=== PATIENT | female | born 1985 | race Caucasian/White ===

== ENCOUNTER 2022-03-31 10:00 | Emergency (ER) | payer MEDICARE, OTHER, SELFPAY ==
[2022-03-31] VITALS (8 sets, daily range): BP systolic 105–143; BP diastolic 60–72; PULSE 72–99; RESP 10–16; TEMP 36.8; O2SAT 98–100; BMI 20.1
--- NOTE | 2022-03-31 10:20 | DI.RAD.S_ITS ---
PROCEDURE: XR CHEST 2V INDICATIONS: shortness of breath TECHNIQUE: 2 views of the chest were acquired. COMPARISON: None. FINDINGS: Surgical changes and devices: None. Lungs and pleura: Lungs are clear. No pleural effusions or pneumothorax. Mediastinum: Mediastinal contours are normal. Heart size is normal. Bones and chest wall: No suspicious bony abnormalities. Soft tissues appear unremarkable. IMPRESSION: No acute cardiopulmonary abnormality. Dictated by: Augie Gibson M.D. on 03/31/2022 at 11:03 Approved by: Augie Gibson M.D. on 03/31/2022 at 11:04
--- NOTE | 2022-03-31 10:45 | ED.CHESTPAIN ---
HPI - Chest Pain General Chief Complaint: Chest Pain Stated Complaint: Chest pain Time Seen by Provider: 03/31/22 10:45 Source: patient Mode of arrival: Ambulatory Limitations: no limitations Limitations: no limitations History of Present Illness HPI narrative: Patient is here with lower sternal chest pain, increased with inspiration. She developed a chest cold about 5 days ago. She has a nonproductive cough. She denies sinus pressure, rhinorrhea or sore throat. She is a nonsmoker. She has no allergy or asthma. She has no chronic respiratory illness, or cardiac disease. She has no abdominal pain. She is not . She has no lower extremity edema or tenderness. Related Data Allergies Allergy/AdvReac Type Severity Reaction Status Date / Time No Known Drug Allergies Allergy Verified 03/31/22 12:11 Review of Systems Review of Systems ROS Unobtainable: All systems reviewed & are unremarkable except as noted in HPI and below Constitutional Constitutional: Reports body ache(s), Denies chills, Reports fatigue, Denies fever(s), Denies night sweats and Denies poor appetite Eyes Eyes: Denies eye discharge ENT Ears, Nose, Mouth, and Throat: Denies vertigo, Denies dizziness, Denies otalgia, Denies mouth pain, Denies neck pain and Reports sore throat Cardiovascular Cardiovascular: Reports as per HPI and Denies dyspnea Respiratory Respiratory: Denies chest congestion, Reports cough and Denies dyspnea Gastrointestinal Gastrointestinal: Denies abdominal pain, Denies dyspepsia and Denies nausea Genitourinary Genitourinary: Denies dysuria Musculoskeletal Musculoskeletal: Denies back pain and Denies neck pain Integumentary/Breasts Skin/Breast: Denies lesions and Denies rash Neurologic Neurologic: Denies confusion, Denies vertigo and Denies dizziness Psychiatric Psychiatric: Denies confusion Endocrine Endocrine: Reports fatigue Hematologic/Lymphatic On Anticoagulants: No Patient History Medical History (Updated 03/31/22 @ 12:25 by Alban Chao MD) No chronic diseases present Social History Smoking Status: Unknown if ever smoked Smoking Status: Never smoker Exam Initial Vital Signs Initial Vital Signs: Vital Signs Temperature 98.2 F 03/31/22 10:02 Pulse Rate 99 H 03/31/22 10:02 Respiratory Rate 16 03/31/22 10:02 Blood Pressure 143/71 H 03/31/22 10:02 Pulse Oximetry 99 03/31/22 10:02 Oxygen Delivery Method 03/31/22 10:02 Const General: cooperative, healthy appearing, comfortable, well developed and well groomed Nutritional Appearance: average body habitus [facility] Head: normal to inspection, normocephalic and atraumatic Face and sinus: normal facial exam and sinuses nontender Mouth: oral mucosae normal Throat: posterior oropharynx normal Eyes Conjunctivae: conjunctivae normal Sclera: sclerae normal Pupils: PERRL EOM: EOM intact bilaterally Neck Neck: normal visual inspection and full ROM Chest Chest: normal inspection of the chest Resp Effort & Inspection: normal respiratory effort Cardio Rate: regular rate Rhythm: regular rhythm Heart Sounds: S1 normal, S2 normal and no murmurs GI Inspection: normal to inspection Palpation: soft Auscultation: normal bowel sounds Back/Spine/Pelvis Back: No CVA tenderness Skin General: no rashes or lesions noted Neuro General: patient alert, patient awake and no focal motor deficits Extrem General: normal to inspection, full ROM and no calf tenderness Psych Mental Status: mental status grossly normal Course Course Course Narrative: Patient is feeling better with ibuprofen. Findings risks consistent with costochondritis. She is discharged on ibuprofen Orders Ordered: ED Orders 03/31/22 10:20 XR chest 2V Stat COVID19 -Nasal RAPID/Pre-Proc Stat Measure peak expiratory flow ONCE RT Consult Eval and Treat Now 03/31/22 10:46 Complete Blood Count AUTO DIFF Stat Comprehensive Metabolic Panel Stat Lactate (Lactic Acid) Stat NT-proBNP (BNP-Adult 18+) Stat 03/31/22 10:53 EKG-12 Lead Stat Discontinued Medications Ibuprofen (Ibuprofen 400 Mg Tablet) 400 mg PO NOW ONE Stop: 03/31/22 10:46 Last Admin: 03/31/22 11:19 Dose: 400 mg Documented By: SB Vital Signs Vital signs: Vital Signs - 8 hr 03/31/22 10:02 Temperature 98.2 F Pulse Rate 99 H Respiratory Rate 16 Blood Pressure 143/71 H Pulse Oximetry 99 Oxygen Delivery Method Room Air MDM - Chest Pain Lab Data Result diagrams: 03/31/22 10:46 03/31/22 10:46 Labs: Lab Results 03/31/22 03/31/22 03/31/22 Range/Units 10:20 10:46 10:46 WBC 4.1 L (4.5-11.0) X10^3/uL RBC 4.78 (4.0-5.2) X10^6/uL Hgb 13.6 (12.0-16.0) g/dL Hct 39.6 (36-46) % MCV 82.9 (80-100) fL MCH 28.4 (26-34) PG MCHC 34.3 (30-36) % RDW 13.8 (11.6-14.8) % Plt Count 232 (150-400) X10^3/uL Neut % (Auto) 60.5 (50-75) % Lymph % (Auto) 26.7 (25-40) % [place] % (Auto) 11.3 (3-14) % Eos % (Auto) 1.1 L (2-4) % Baso % (Auto) 0.4 (0-2) % Neut # (Auto) 2500 (6451-9304) /uL Lymph # (Auto) 1100 (0705-4957) /uL [place] # (Auto) 500 (0-900) /uL Eos # (Auto) 0 (0-450) /uL Baso # (Auto) 0 (0-100) /uL Sodium 142 (137-145) mmol/L Potassium 3.5 (3.4-5.1) mmol/L Chloride 103 (98-107) mmol/L Carbon Dioxide 28 (22-32) mmol/L BUN 13 (7-17) mg/dL Creatinine 0.65 (0.52-1.04) mg/dL Estimated GFR > 60 (>60) mL/min BUN/Creatinine Ratio 20.0 (6-22) Glucose 102 H (70-100) mg/dL Lactate (0.7-2.1) mmol/L Calcium 9.0 (8.4-10.2) mg/dL Total Bilirubin 0.9 (0.2-1.3) mg/dL AST 27 (14-36) IU/L ALT 24 (<35) IU/L Alkaline Phosphatase 47 (38-126) U/L NT-Pro-B Natriuret Pep 56 (<125) pg/mL Total Protein 7.3 (6.3-8.2) g/dL Albumin 4.5 (3.5-5.0) g/dL Globulin 2.8 (1.7-4.1) g/dL Albumin/Globulin Ratio 1.6 (1.0-2.8) SARS-CoV-2 (PCR) Negative (Negative) 03/31/22 Range/Units 10:46 WBC (4.5-11.0) X10^3/uL RBC (4.0-5.2) X10^6/uL Hgb (12.0-16.0) g/dL Hct (36-46) % MCV (80-100) fL MCH (26-34) PG MCHC (30-36) % RDW (11.6-14.8) % Plt Count (150-400) X10^3/uL Neut % (Auto) (50-75) % Lymph % (Auto) (25-40) % [place] % (Auto) (3-14) % Eos % (Auto) (2-4) % Baso % (Auto) (0-2) % Neut # (Auto) (5595-9243) /uL Lymph # (Auto) (5556-3271) /uL [place] # (Auto) (0-900) /uL Eos # (Auto) (0-450) /uL Baso # (Auto) (0-100) /uL Sodium (137-145) mmol/L Potassium (3.4-5.1) mmol/L Chloride (98-107) mmol/L Carbon Dioxide (22-32) mmol/L BUN (7-17) mg/dL Creatinine (0.52-1.04) mg/dL Estimated GFR (>60) mL/min BUN/Creatinine Ratio (6-22) Glucose (70-100) mg/dL Lactate 0.5 L (0.7-2.1) mmol/L Calcium (8.4-10.2) mg/dL Total Bilirubin (0.2-1.3) mg/dL AST (14-36) IU/L ALT (<35) IU/L Alkaline Phosphatase (38-126) U/L NT-Pro-B Natriuret Pep (<125) pg/mL Total Protein (6.3-8.2) g/dL Albumin (3.5-5.0) g/dL Globulin (1.7-4.1) g/dL Albumin/Globulin Ratio (1.0-2.8) SARS-CoV-2 (PCR) (Negative) Imaging Data Chest x-ray: Radiologist's Impression: Normal ECG Data Attestation: I personally reviewed and interpreted this ECG as follows: (Normal sinus rhythm rate 92 beats per minute. Normal intervals. No ectopy. No acute ST T wave changes.) Discharge Plan Departure Patient Disposition: Home Clinical Impression: Acute costochondritis Instructions: DI for Costochondritis Activity Restrictions/Additional Instructions: Your heart and lungs are healthy. Your pain is rib pain. Your pain is along the ribs and with the ribs during the sternum. This is from a viral infection from coughing. Advil 3 tablets every 6 hours needed for pain. If no improved within 1 week follow-up with your doctor, return here if you think necessary. Referrals: ProviderGina [Primary Care Provider] -
[2022-03-31 10:47] LABS: COVID19 -Nasal RAPID Negative (Negative)
[2022-03-31 10:56] LABS: Add Manual Diff / Slide Review NO; Basophils Absolute Auto 0 /uL (0-100); Basophils Percent Auto 0.4 % (0-2); Eosinophils Absolute Auto 0 /uL (0-450); Eosinophils Percent Auto 1.1 % (2-4); Hematocrit 39.6 % (36-46); Hemoglobin 13.6 g/dL (12.0-16.0); Lymphocytes Absolute Auto 1100 /uL (1100-4500); Lymphocytes Percent Auto 26.7 % (25-40); Mean Corpuscular HGB Conc 34.3 % (30-36); Mean Corpuscular Hemoglobin 28.4 PG (26-34); Mean Corpuscular Volume 82.9 fL (80-100); Monocytes Absolute Auto 500 /uL (0-900); Monocytes Percent Auto 11.3 % (3-14); Neutrophils Absolute Auto 2500 /uL (1500-7000); Neutrophils Percent Auto 60.5 % (50-75); Platelet Count 232 X10^3/uL (150-400); Red Blood Cell Count 4.78 X10^6/uL (4.0-5.2); Red Cell Distribution Width 13.8 % (11.6-14.8); White Blood Cell Count 4.1 X10^3/uL (4.5-11.0)
[2022-03-31] MEDS: IBUPROFEN 400 MG TABLET PO (11:19)
[2022-03-31 11:49] LABS: Lactate (Lactic Acid) 0.5 mmol/L (0.7-2.1)
[2022-03-31 11:50] LABS: Alanine Aminotransferase 24 IU/L (<35); Albumin 4.5 g/dL (3.5-5.0); Albumin Globulin Ratio 1.6 (1.0-2.8); Alkaline Phosphatase 47 U/L (38-126); Aspartate Aminotransferase 27 IU/L (14-36); Bilirubin Total 0.9 mg/dL (0.2-1.3); Blood Urea Nitrogen 13 mg/dL (7-17); Carbon Dioxide 28 mmol/L (22-32); Chloride 103 mmol/L (98-107); Estimated Glomerular Filt Rate > 60 mL/min (>60); Globulin 2.8 g/dL (1.7-4.1); Glucose 102 mg/dL (70-100); HEMOLYSIS < 15 (0-50); Potassium 3.5 mmol/L (3.4-5.1); Sodium 142 mmol/L (137-145); Total Protein 7.3 g/dL (6.3-8.2)
[2022-03-31 11:58] LABS: NT-proBNP (BNP-Adult 18+) 56 pg/mL (<125)
== END 2022-03-31 12:29 | disposition home or self-care (01) ==
PROVIDERS: Emergency Provider Emergency Medicine
DX: M94.0 Chondrocostal junction syndrome [Tietze] (principal); R05.9 Cough, unspecified; Z20.822 Contact with and (suspected) exposure to COVID-19
CPT/HCPCS: 71046; 80053; 83605; 83880; 85025; 87635; 93005; 99283; 99284; C9803

== ENCOUNTER 2022-06-25 10:02 | Emergency (ER) | payer MEDICARE, OTHER, SELFPAY ==
[2022-06-25 10:14] VITALS: BP 133/74; PULSE 128; RESP 16; TEMP 36.9; O2SAT 99; BMI 19.2
--- NOTE | 2022-06-25 12:49 | ED_ITS ---
HPI - Allergic Reaction <QUINN Crawford - Last Filed: 06/25/22 17:17> General Chief complaint: Allergic Reaction Stated complaint: allergic reaction/swollen mouth/headache Time Seen by Provider: 06/25/22 12:27 History of Present Illness HPI narrative: This is a 36-year-old female presents to the emergency department with concern of an allergic reaction to chocolate, or nuts. Patient denies history of known allergy to chocolate, states that she used to eat at all of the time and then it has been many years since she is had it. Last night she had ice cream, a cookie made out of gluten free flower as her child has a gluten allergy and states it had nuts in it, she also had ice cream last night. States that she felt tingling in her throat, and has had diarrhea all morning today at least 6 episodes. Denies any blood in her stool, states her mouth, lower lip feels swollen, and scratchy. Patient has history of cochlear implant, her is at her bedside and helping with history. Patient has an EpiPen at home but has not used it. She took 50 mg of Benadryl prior to her arrival. She denies any hives, chest pain, vomiting but endorses nausea. She denies any recent illness including shortness of breath cough, she does not have any rash on her hands. She has 2 children ages 7 and 12, denies them having illness at home. Related Data Previous Rx's Medication Instructions Recorded cetirizine 10 mg tablet 20 mg PO BEDTIME #60 tabs 06/25/22 epinephrine 0.3 mg/0.3 mL 0.3 mg (0.3 mL) IM Q5-15M PRN 06/25/22 injection, auto-injector (EpiPen) anaphylaxis #2 ea famotidine 20 mg tablet (Pepcid) 20 mg PO DAILY #14 tabs 06/25/22 hydroxyzine HCl 25 mg tablet 25 mg PO TID PRN itching #20 tabs 06/25/22 prednisone 20 mg tablet 40 mg PO DAILY 5 days #10 tabs 06/25/22 Allergies Allergy/AdvReac Type Severity Reaction Status Date / Time No Known Drug Allergies Allergy Verified 03/31/22 12:11 Review of Systems <QUINN Crawford - Last Filed: 06/25/22 17:17> Review of Systems ROS Unobtainable: All systems reviewed & are unremarkable except as noted in HPI and below Patient History <QUINN Crawford - Last Filed: 06/25/22 17:17> Medical History No chronic diseases present Social History Smoking Status: Never smoker Smoking Status: Never smoker alcohol intake frequency: holidays/special occasions only Substance Use Type: does not use Exam <QUINN Crawford - Last Filed: 06/25/22 17:17> Narrative Exam Narrative: Reviewed vitals signs and nursing notes. General: cooperative, comfortable, in no acute distress, well groomed, febrile, HEENT: symmetrical facial expressions, moist mucous membranes, lower lip is edematous, appears like HSV or a bruised lip, without drainage, no swelling to her uvula, uvula is midline, Mallampati of 2, without stridor, recheck with worsening swelling to her tongue 1 hour later, serial assessments for the next 3 hours were improved without recurrence of edema. Patient denies worsening symptoms of throat scratchiness, bee sting sensation or other painfulness Cardiovascular: Tachycardic rate and regular rhythm, without extremity edema, murmur, S1-S2 warm extremities Respiratory: normal effort, able to speak in complete sentences, without wheezing, stridor, or abnormal breath sounds. No retractions or tachypnea. GI: abdomen soft, nontender to palpation, nondistended, without masses, rebound tenderness or exquisite tenderness with exam. MSK: moves all extremities, neurovascularly intact, no weakness, normal tone Skin: brisk capillary refill, without pallor or erythema Neuro: normal speech and cognition, A&O x3, ambulatory, clear speech Psych: mental status is grossly normal, congruent mood, normal affect, pleasant and cooperative Initial Vital Signs Initial Vital Signs: Vital Signs Temperature 98.4 F 06/25/22 10:14 Pulse Rate 128 H 06/25/22 10:14 Respiratory Rate 16 06/25/22 10:14 Blood Pressure 133/74 06/25/22 10:14 Pulse Oximetry 99 06/25/22 10:14 Oxygen Delivery Method 06/25/22 10:14 <Solomon Vega DO - Last Filed: 06/29/22 09:29> Initial Vital Signs Initial Vital Signs: Vital Signs Temperature 98.4 F 06/25/22 10:14 Pulse Rate 128 H 06/25/22 10:14 Respiratory Rate 16 06/25/22 10:14 Blood Pressure 133/74 06/25/22 10:14 Pulse Oximetry 99 06/25/22 10:14 Oxygen Delivery Method 06/25/22 10:14 Course <QUINN Crawford - Last Filed: 06/25/22 17:17> Orders Ordered: Discontinued Medications Acetaminophen (Acetaminophen 325 Mg Tablet) 650 mg PO NOW ONE Stop: 06/25/22 12:39 Last Admin: 06/25/22 12:56 Dose: 650 mg Documented By: CTS Dexamethasone (Dexamethasone 10 Mg/Ml Vial) 10 mg PO NOW ONE Stop: 06/25/22 12:39 Last Admin: 06/25/22 12:56 Dose: 10 mg Documented By: CTS Diphenhydramine HCl (Diphenhydramine 25 Mg Tablet) 50 mg PO NOW ONE Stop: 06/25/22 12:29 Epinephrine HCl (Epinephrine 1 Mg/Ml) 0.3 mg IM NOW ONE Stop: 06/25/22 13:25 Last Admin: 06/25/22 13:37 Dose: 0.3 mg Documented By: CTS Ketorolac Tromethamine (Ketorolac 10 Mg Tablet) 10 mg PO NOW ONE Stop: 06/25/22 12:39 Last Admin: 06/25/22 12:56 Dose: 10 mg Documented By: CTS Loratadine (Loratadine 10 Mg Tablet) 10 mg PO NOW ONE Stop: 06/25/22 12:39 Last Admin: 06/25/22 12:56 Dose: 10 mg Documented By: CTS Ondansetron HCl (Ondansetron 4 Mg Odt) 4 mg SL NOW ONE Stop: 06/25/22 12:39 Last Admin: 06/25/22 12:56 Dose: 4 mg Documented By: CTS Pantoprazole Sodium (Pantoprazole Dr 20 Mg Tablet) 20 mg PO NOW ONE Stop: 06/25/22 12:42 Last Admin: 06/25/22 12:56 Dose: 20 mg Documented By: CTS Reevaluation(s) Reevaluation #2: Re-evaluation at with Dr. Vega patient has had mild increase of swelling to her tongue, oropharynx, and states that her throat feels like bee stings. She is without stridor, has a patent airway, Mallampati of 2, and is without shortness of breath, wheezing, tachypnea but still has tachycardia and is warm to palpation with presumed fever. Patient placed on pulse oximetry and is satting 100% on room air, heart rate has come down after her medications mildly from 129-95. She is in no distress. Vital Signs Vital signs: Vital Signs - 8 hr 06/25/22 10:14 06/25/22 12:59 06/25/22 14:20 Temperature 98.4 F Pulse Rate 128 H 120 H 112 H Respiratory Rate 16 18 16 Blood Pressure 133/74 Pulse Oximetry 99 100 100 Oxygen Delivery Method Room Air Room Air Room Air 06/25/22 13:30 06/25/22 14:46 Temperature Pulse Rate 94 H 99 H Respiratory Rate 16 Blood Pressure 121/58 L Pulse Oximetry 100 98 Oxygen Delivery Method Room Air Room Air <Solomon Vega, DO - Last Filed: 06/29/22 09:29> Orders Ordered: Discontinued Medications Acetaminophen (Acetaminophen 325 Mg Tablet) 650 mg PO NOW ONE Stop: 06/25/22 12:39 Last Admin: 06/25/22 12:56 Dose: 650 mg Documented By: CTS Dexamethasone (Dexamethasone 10 Mg/Ml Vial) 10 mg PO NOW ONE Stop: 06/25/22 12:39 Last Admin: 06/25/22 12:56 Dose: 10 mg Documented By: CTS Diphenhydramine HCl (Diphenhydramine 25 Mg Tablet) 50 mg PO NOW ONE Stop: 06/25/22 12:29 Epinephrine HCl (Epinephrine 1 Mg/Ml) 0.3 mg IM NOW ONE Stop: 06/25/22 13:25 Last Admin: 06/25/22 13:37 Dose: 0.3 mg Documented By: CTS Ketorolac Tromethamine (Ketorolac 10 Mg Tablet) 10 mg PO NOW ONE Stop: 06/25/22 12:39 Last Admin: 06/25/22 12:56 Dose: 10 mg Documented By: CTS Loratadine (Loratadine 10 Mg Tablet) 10 mg PO NOW ONE Stop: 06/25/22 12:39 Last Admin: 06/25/22 12:56 Dose: 10 mg Documented By: MICHAEL Ondansetron HCl (Ondansetron 4 Mg Odt) 4 mg SL NOW ONE Stop: 06/25/22 12:39 Last Admin: 06/25/22 12:56 Dose: 4 mg Documented By: MICHAEL Pantoprazole Sodium (Pantoprazole Dr 20 Mg Tablet) 20 mg PO NOW ONE Stop: 06/25/22 12:42 Last Admin: 06/25/22 12:56 Dose: 20 mg Documented By: CTS Vital Signs Vital signs: Vital Signs - 8 hr 06/25/22 10:14 06/25/22 12:59 06/25/22 14:20 Temperature 98.4 F Pulse Rate 128 H 120 H 112 H Respiratory Rate 16 18 16 Blood Pressure 133/74 Pulse Oximetry 99 100 100 Oxygen Delivery Method Room Air Room Air Room Air 06/25/22 13:30 06/25/22 14:46 Temperature Pulse Rate 94 H 99 H Respiratory Rate 16 Blood Pressure 121/58 L Pulse Oximetry 100 98 Oxygen Delivery Method Room Air Room Air MDM - Allergic Reaction <QUINN Crawford - Last Filed: 06/25/22 17:17> Lab Data Labs: Lab Results 06/25/22 Range/Units 12:38 SARS-CoV-2 (PCR) Negative (Negative) Influenza A (RT-PCR) Flu a negative (NEGATIVE) Influenza B (RT-PCR) Flu b negative (NEGATIVE) RSV (PCR) Negative (Negative) MDM Narrative Medical decision making narrative: This is a 36-year-old female who presents to the emergency department with concern for anaphylaxis and swelling of her mouth and lips after ingesting potential allergens last night. Patient thinks that she might have an allergy to chocolate since she went years without eating it and had it for the 1st time last night along with nuts and dairy. She states that she had scratchy sensation to her throat last night, and mild swelling of her lip, and states this morning got worse than last night with swelling of her tongue. She took 50 mg of Benadryl prior to her arrival and has not taken any other medications. Endorses 5 episodes of diarrhea this morning and nausea. Had fever, chills. Over her course in the emergency department she was observed for several hours, her initial medications were given and approximately 1 hour later she had worsening edema to her tongue and bee sting sensation to her mouth and throat. She was given 0.3 mg of IM epinephrine for this. Her initial tachycardia had improved prior to administration. She came in with heart rate nearing 130, has normal phonation, clear speech, without swallowing difficulty, vomiting, difficulty breathing, wheezing, hives, or other symptom. She consumed 1.5 L of water while in the emergency department without vomiting. After epinephrine and another hour of observation, her symptoms improved greatly. She did not have any hypotension, only tachycardia. Differential diagnoses include anaphylaxis with 2 body system involvement including skin/angioedema and cardiac , could also be anaphlactic shock but less likely as patient has had any hypotension, altered mental status, signs of other body system involvement. This could be viral illness but unlikely as her respiratory panel is negative for tested viruses. Patient's symptoms greatly improved after IM epinephrine times warmth. Fears observe for several hours afterwards and remained improved without swelling of her oropharynx again or bee sting sensation. She was discharged home with strict return precautions, was given an EpiPen, 3 refills, prescription of Zyrtec, Pepcid, hydroxyzine, and prednisone for the next 5 days and encouraged her to take Zyrtec and famotidine for at least 1 week and up to 2 as needed. She understands to follow-up with her primary care provider as soon as possible and return to the emergency department immediately if she develops worsening symptoms after treating herself with her EpiPen. Patient is appropriate and amenable to discharge home. Vital signs are stable on repeat examination is unremarkable. Patient has been informed of results. Patient has been given strict return to ER precautions for any new or worsening symptoms. Patient understands to follow up closely with outpatient providers as instructed. Patient understands plan and agrees to discharge home. All questions and concerns answered at this time. 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 Thank you for staying in the emergency department for observation. Please follow-up with your primary care provider and let them know about your emergency department visit for anaphylaxis and ask for referral to Allergy and immunology for allergy testing. Please come back if you have shortness of breath, increased swelling again, fever, chills, or if your symptoms are not tolerable. Please take these medications for the next 1-2 weeks and continue on Zyrtec for at least 2 weeks. Take Benadryl for extreme symptoms every 8 hours. It is okay to take hydroxyzine during the daytime for itching or for scratchy sensation. Plan on recurrence of the swelling and be prepared with your EpiPen, treat yourself again exactly how you did, take Benadryl 50 mg again and come back. I think that your symptoms should start to improve. I appreciate your patience, I wish you well. *What to do: *Please continue to take your regular medications as directed. [x ] New medication prescriptions sent to your pharmacy: [ [facility] [place]] [ ] New medication written as a paper prescription [ ] No new medications given *Please follow up with your primary care provider in 2-3 days, call for an appointment. Let them know you were seen in the Emergency Department and that we asked that you be seen for follow-up. We will electronically transmit a record of today's note if your PCP is in our system *If you do not have a primary care provider please contact [phone] to establish care with one of the [facility] primary care providers. *Return to Emergency Department if you should have any new, worsening, or concerning symptoms, such as [fever greater than 101F, chills, worsening pain, persistent vomiting or other bothersome symptoms]. Prescriptions: New cetirizine 10 mg tablet 20 mg PO BEDTIME Qty: 60 0RF prednisone 20 mg tablet 40 mg PO DAILY 5 Days Qty: 10 0RF famotidine [Pepcid] 20 mg tablet 20 mg PO DAILY Qty: 14 0RF hydroxyzine HCl 25 mg tablet 25 mg PO TID PRN (Reason: itching) Qty: 20 0RF epinephrine [EpiPen] 0.3 mg/0.3 mL auto-injector 0.3 mg IM Q5-15M PRN (Reason: anaphylaxis) Qty: 2 3RF Rx Instructions: do not exceed 3 doses per episode, and go to the hospital afterward Referrals: Provider,Gina STRICKLAND [Primary Care Provider] - <Solomon Vega DO - Last Filed: 06/29/22 09:29> Cosign ED Attending Cosignature Attestation: I was immediately available in the department for consultation. This documentation has been reviewed and I agree with assessment and plan. Supervised by Solomon Vega DO
[2022-06-25] MEDS: DEXAMETHASONE 10 MG/ML VIAL PO (12:56)
[2022-06-25] MEDS: LORATADINE 10 MG TABLET PO (12:56)
[2022-06-25] MEDS: ONDANSETRON 4 MG ODT SL (12:56)
[2022-06-25] MEDS: ACETAMINOPHEN 325 MG TABLET 650 MG PO (12:56)
[2022-06-25] MEDS: KETOROLAC 10 MG TABLET PO (12:56)
[2022-06-25] MEDS: PANTOPRAZOLE DR 20 MG TABLET PO (12:56)
[2022-06-25 12:59] VITALS: PULSE 120; RESP 18; O2SAT 100
[2022-06-25 13:30] VITALS: PULSE 94; RESP 16; O2SAT 100
[2022-06-25 13:32] LABS: Influenza A - CEPHEID Flu A NEGATIVE (NEGATIVE); Influenza B - CEPHEID Flu B NEGATIVE (NEGATIVE); Respiratory Syncytial Virus Negative (Negative)
[2022-06-25 13:35] LABS: COVID-19 CEPHEID 4-PLEX PCR Negative (Negative)
[2022-06-25] MEDS: EPINEPHrine 1 MG/ML 0.3 MG IM (13:37)
[2022-06-25 14:20] VITALS: PULSE 112; RESP 16; O2SAT 100
--- NOTE | 2022-06-25 14:25 | PC.NURSE ---
1330: Pt medicated per AUG. Shortly after pt;s HR normalized from 126 to <100. However she states that her lips and tongue feel more swollen and tingly. Laury Crew at bedside and verbal order for IM epi 0.3. tolerated well.
[2022-06-25 14:46] VITALS: BP 121/58; PULSE 99; O2SAT 98
== END 2022-06-25 14:46 | disposition home or self-care (01) ==
PROVIDERS: Emergency Provider Nurse Practitioner Critical Care Medicine
DX: T78.2XXA Anaphylactic shock, unspecified, initial encounter (principal); T78.3XXA Angioneurotic edema, initial encounter; T78.1XXA Other adverse food reactions, not elsewhere classified, initial encounter; Z20.822 Contact with and (suspected) exposure to COVID-19
CPT/HCPCS: 0241U; 96372; 99283; J0171; J1100

== ENCOUNTER 2022-09-05 20:04 | Emergency (ER) | payer MEDICARE, OTHER, SELFPAY ==
[2022-09-05 20:06] VITALS: BP 133/99; PULSE 114; RESP 12; TEMP 37.1; O2SAT 97; BMI 20.1
[2022-09-05 20:43] LABS: Add Manual Diff / Slide Review NO; Basophils Absolute Auto 0 /uL (0-100); Basophils Percent Auto 0.2 % (0-2); Eosinophils Absolute Auto 100 /uL (0-450); Eosinophils Percent Auto 0.9 % (2-4); Hemoglobin 15.1 g/dL (12.0-16.0); Lymphocytes Absolute Auto 2200 /uL (1100-4500); Mean Corpuscular Hemoglobin 28.6 PG (26-34); Mean Corpuscular Volume 81.5 fL (80-100); Monocytes Absolute Auto 900 /uL (0-900); Monocytes Percent Auto 14.1 % (3-14); Neutrophils Absolute Auto 3200 /uL (1500-7000); Neutrophils Percent Auto 50.8 % (50-75); Platelet Count 195 X10^3/uL (150-400); Red Blood Cell Count 5.27 X10^6/uL (4.0-5.2); Red Cell Distribution Width 14.1 % (11.6-14.8); White Blood Cell Count 6.3 X10^3/uL (4.5-11.0)
[2022-09-05 20:44] LABS: Alanine Aminotransferase 31 IU/L (<35); Albumin 4.9 g/dL (3.5-5.0); Albumin Globulin Ratio 1.6 (1.0-2.8); Alkaline Phosphatase 54 U/L (38-126); Aspartate Aminotransferase 28 IU/L (14-36); BUN Creatinine Ratio 21.4 (6-22); Blood Urea Nitrogen 12 mg/dL (7-17); Calcium 8.9 mg/dL (8.4-10.2); Carbon Dioxide 24 mmol/L (22-32); Chloride 104 mmol/L (98-107); Estimated Glomerular Filt Rate > 60 mL/min (>60); Glucose 92 mg/dL (70-100); HEMOLYSIS < 15 (0-50); Lipase 156 U/L (23-300); Potassium 3.2 mmol/L (3.4-5.1); Sodium 141 mmol/L (137-145); Total Protein 7.9 g/dL (6.3-8.2)
--- NOTE | 2022-09-05 20:49 | ED.ABDPAIN ---
HPI - Abdominal Pain General Chief Complaint: Abdominal Pain Stated Complaint: Lump in ABD, No bowel movements Time Seen by Provider: 09/05/22 20:40 Source: patient Mode of arrival: Ambulatory History of Present Illness HPI narrative: Patient is a healthy 36-year-old female who presents with some right lower quadrant pain. She reports that she had some nausea vomiting diarrhea 4 days ago her last bowel movement was 3 days ago. She feels like she has have a bowel movement but she can not she had some burning sensation in her periumbilical area and now has right lower quadrant pain. She denies any fevers chills she is keeping liquids down she is peeing regularly. She does not have much of an appetite. She denies any flank pain or radiation. She is feels like something is wrong she really feels like she is to have a bowel movement but can not. She was previously having fever and chills but that has stopped. Other people in her family have also had nausea vomiting diarrhea. Related Data Previous Rx's Medication Instructions Recorded cetirizine 10 mg tablet 20 mg PO BEDTIME #60 tabs 06/25/22 epinephrine 0.3 mg/0.3 mL 0.3 mg (0.3 mL) IM Q5-15M PRN 06/25/22 injection, auto-injector (EpiPen) anaphylaxis #2 ea famotidine 20 mg tablet (Pepcid) 20 mg PO DAILY #14 tabs 06/25/22 hydroxyzine HCl 25 mg tablet 25 mg PO TID PRN itching #20 tabs 06/25/22 Allergies Allergy/AdvReac Type Severity Reaction Status Date / Time cocoa Allergy Verified 09/05/22 21:08 Review of Systems Review of Systems ROS Unobtainable: All systems reviewed & are unremarkable except as noted in HPI and below Patient History Medical History No chronic diseases present Social History Smoking Status: Never smoker Smoking Status: Never smoker alcohol intake frequency: holidays/special occasions only Substance Use Type: does not use Exam Initial Vital Signs Initial Vital Signs: Vital Signs Temperature 98.7 F 09/05/22 20:06 Pulse Rate 114 H 09/05/22 20:06 Respiratory Rate 12 09/05/22 20:06 Blood Pressure 133/99 H 09/05/22 20:06 Pulse Oximetry 97 09/05/22 20:06 Oxygen Delivery Method Room Air 09/05/22 20:06 GENERAL: Alert pleasant 36-year-old female and in no acute distress. HEENT: Head atraumatic,EOMI, pupils reactive, face symmetric, moist mucous membranes CARDIOVASCULAR: Regular rate and rhythm without murmurs, rubs or gallops. RESPIRATORY: Breath sounds equal bilaterally, no wheezes rales or rhonchi. ABDOMEN: Soft, mild tenderness in right lower quadrant no guarding no rebound no distention bowel sounds negative Mora sign : No CVA tenderness EXTREMITIES: Normal range of motion, no clubbing or edema. Neurovascularly intact NEUROLOGICAL: Alert and oriented x4 SKIN: Warm, dry, no laceration, no petechiae, no rashes or lesions. Course Orders Ordered: ED Orders 09/05/22 20:22 Complete Blood Count AUTO DIFF Stat Comprehensive Metabolic Panel Stat Lipase Stat 09/05/22 20:50 CT abdomen pelvis w con Stat Discontinued Medications Sodium Chloride (Normal Saline 0.9%) 1,000 mls @ 1,000 mls/hr IV BOLUS ONE Stop: 09/05/22 21:49 Last Infusion: 09/05/22 21:58 Dose: 0 mls/hr Documented By: Admin: 09/05/22 21:05 Dose: 1,000 mls/hr Documented By: ARMIDA Ketorolac Tromethamine (Ketorolac 30 Mg/Ml Vial) 15 mg IV NOW ONE Stop: 09/05/22 20:51 Last Admin: 09/05/22 21:06 Dose: 15 mg Documented By: ARMIDA Ondansetron HCl (Ondansetron 4 Mg Odt) 4 mg PO NOW PRN PRN Reason: Nausea And Vomiting Ondansetron HCl (Ondansetron 4 Mg/2 Ml Inj) 4 mg IV NOW PRN PRN Reason: Nausea And Vomiting Last Admin: 09/05/22 21:06 Dose: 4 mg Documented By: ARMIDA Vital Signs Vital signs: Vital Signs - 8 hr 09/05/22 20:06 09/05/22 22:28 Temperature 98.7 F Pulse Rate 114 H 87 Respiratory Rate 12 16 Blood Pressure 133/99 H 132/80 Pulse Oximetry 97 99 Oxygen Delivery Method Room Air Room Air MDM - Abdominal Pain Lab Data 09/05/22 20:22 09/05/22 20:22 Labs: Lab Results 09/05/22 09/05/22 Range/Units 20:22 20:22 WBC 6.3 (4.5-11.0) X10^3/uL RBC 5.27 H (4.0-5.2) X10^6/uL Hgb 15.1 (12.0-16.0) g/dL Hct 43.0 (36-46) % MCV 81.5 (80-100) fL MCH 28.6 (26-34) PG MCHC 35.0 (30-36) % RDW 14.1 (11.6-14.8) % Plt Count 195 (150-400) X10^3/uL Neut % (Auto) 50.8 (50-75) % Lymph % (Auto) 34.0 (25-40) % [place] % (Auto) 14.1 H (3-14) % Eos % (Auto) 0.9 L (2-4) % Baso % (Auto) 0.2 (0-2) % Neut # (Auto) 3200 (2915-7350) /uL Lymph # (Auto) 2200 (0297-9693) /uL [place] # (Auto) 900 (0-900) /uL Eos # (Auto) 100 (0-450) /uL Baso # (Auto) 0 (0-100) /uL Sodium 141 (137-145) mmol/L Potassium 3.2 L (3.4-5.1) mmol/L Chloride 104 (98-107) mmol/L Carbon Dioxide 24 (22-32) mmol/L BUN 12 (7-17) mg/dL Creatinine 0.56 (0.52-1.04) mg/dL Estimated GFR > 60 (>60) mL/min BUN/Creatinine Ratio 21.4 (6-22) Glucose 92 (70-100) mg/dL Calcium 8.9 (8.4-10.2) mg/dL Total Bilirubin 1.0 (0.2-1.3) mg/dL AST 28 (14-36) IU/L ALT 31 (<35) IU/L Alkaline Phosphatase 54 (38-126) U/L Total Protein 7.9 (6.3-8.2) g/dL Albumin 4.9 (3.5-5.0) g/dL Globulin 3.0 (1.7-4.1) g/dL Albumin/Globulin Ratio 1.6 (1.0-2.8) Lipase 156 (23-300) U/L Point of care testing: Point of Care Testing Test Results Negative Urine Dip Bedside Urine Glucose Negative Bedside Urine Bilirubin - Negative Bedside Urine Ketone - Negative Urine Specific [place] 1.005 Bedside Urine Occult Blood - Negative Bedside Urine pH 7.0 Bedside Urine Protein - Negative Bedside Urine Urobilinogen - Negative Bedside Urine Nitrite - Negative Bedside Urine Leukocytes - Negative Esterase Imaging Data CT scan - abdomen/pelvis: Radiologist's Impression: PROCEDURE:? CT ABDOMEN PELVIS W CON ? INDICATIONS:? rlq pain ? TECHNIQUE:? After the administration of IV contrast, axial sections were acquired from the lung bases to the pubic symphysis.? Coronal and sagittal reformats were performed.? For radiation dose reduction, the following was used:? automated exposure control, adjustment of mA and/or kV according to patient size. ? COMPARISON:? None. ? FINDINGS:? Image quality:? Excellent.? ? Lung bases:? Unremarkable.? ? Heart:? Heart is normal in size. ? ? ABDOMEN: Liver:? No mass lesion. Gallbladder:? Within normal limits without calcified gallstones.? ? Biliary ducts:? No biliary ductal dilatation.? ? Pancreas:? Unremarkable.? ? Spleen:? Normal in size.? ? Adrenal Glands:? No adrenal nodules.? ? Kidneys and Ureters:? No hydronephrosis.? ? ? Stomach and Bowel:? Stomach, small bowel loops, and colon are normal in caliber and wall thickness.? The appendix is normal.? Peritoneum:? There is a small amount of intraperitoneal free fluid in the pelvis.? No free air.? ? Ventral Wall: ? No hernia.? Abdominal Nodes:? No retroperitoneal or mesenteric adenopathy by size criteria.? Vessels:? Aorta and inferior vena cava are normal in size.? ? PELVIS: Pelvic Organs:? Uterus and ovaries appear within normal size limits with hyperemia of the uterus.? There is mild enlargement and prominence of the parametrial veins.? There is a small peripherally enhancing cyst in the right ovary measuring up to 1.8 cm likely representing a physiologic cyst.? Bladder:? Unremarkable.? ? Pelvic Nodes: No enlarged lymph nodes.? Miscellaneous: No inguinal hernias are seen. ? ? ? Bones:? Visualized osseous structures demonstrate no suspicious focal lesions. ? IMPRESSION:? ? 1. No evidence of appendicitis. ? 2. Small peripherally enhancing cyst in the right ovary likely represents a physiologic cyst such as a corpus luteal cyst. ? 3. Hyperemia of the pelvic vasculature with enlargement and prominence of the parametrial veins.? The findings may reflect pelvic congestion syndrome in the appropriate clinical context.? ? ? Dictated by: Andrea Irizarry M.D. on 09/05/2022 at 21:45 ? ? Approved by: Andrea Irizarry M.D. on 09/05/2022 at 22:0 MDM Narrative Medical decision making narrative: Patient presents with some nausea vomiting diarrhea now constipation with right lower quadrant pain. Blood work is overall reassuring without leukocytosis mild hypokalemia 3.2 with no DELTA. Exam shows some mild tenderness in right lower quadrant concerning for appendicitis versus ovarian cyst seems slightly higher than ovarian cyst. CT does confirm small ovarian cyst no appendicitis, diverticulitis nephrolithiasis bowel obstruction or other etiology. She was mildly tachycardic initially given Toradol Zofran and fluids. Heart rate also improved. Discharge Plan Departure Patient Disposition: Home Clinical Impression: Ovarian cyst Instructions: DI for Ovarian Cyst Activity Restrictions/Additional Instructions: *You have been diagnosed with right ovarian cyst *What to do: At this time increase appetite as tolerated. Ovarian cyst may be causing some of your pain. No evidence of appendicitis *Continue to take medications as directed Tylenol 1000 mg every 6 hours if needed for [id number] pain Motrin 600 mg every 6 hours if needed for [id number] pain *Follow up with your primary care provider in 2-3 days or call [phone] *Return to ER if you should have worsening pain persistent vomiting fever chills [or] any new, worsening or concerning symptoms Prescriptions: No Action cetirizine 10 mg tablet 20 mg PO BEDTIME Qty: 60 0RF famotidine [Pepcid] 20 mg tablet 20 mg PO DAILY Qty: 14 0RF hydroxyzine HCl 25 mg tablet 25 mg PO TID PRN (Reason: itching) Qty: 20 0RF epinephrine [EpiPen] 0.3 mg/0.3 mL auto-injector 0.3 mg IM Q5-15M PRN (Reason: anaphylaxis) Qty: 2 3RF Rx Instructions: do not exceed 3 doses per episode, and go to the hospital afterward Referrals: ProviderGina [Primary Care Provider] - Stand Alone Forms: Patient Portal/API
--- NOTE | 2022-09-05 20:50 | DI.CT.S_ITS ---
PROCEDURE: CT ABDOMEN PELVIS W CON INDICATIONS: rlq pain TECHNIQUE: After the administration of IV contrast, axial sections were acquired from the lung bases to the pubic symphysis. Coronal and sagittal reformats were performed. For radiation dose reduction, the following was used: automated exposure control, adjustment of mA and/or kV according to patient size. COMPARISON: None. FINDINGS: Image quality: Excellent. Lung bases: Unremarkable. Heart: Heart is normal in size. ABDOMEN: Liver: No mass lesion. Gallbladder: Within normal limits without calcified gallstones. Biliary ducts: No biliary ductal dilatation. Pancreas: Unremarkable. Spleen: Normal in size. Adrenal Glands: No adrenal nodules. Kidneys and Ureters: No hydronephrosis. Stomach and Bowel: Stomach, small bowel loops, and colon are normal in caliber and wall thickness. The appendix is normal. Peritoneum: There is a small amount of intraperitoneal free fluid in the pelvis. No free air. Ventral Wall: No hernia. Abdominal Nodes: No retroperitoneal or mesenteric adenopathy by size criteria. Vessels: Aorta and inferior vena cava are normal in size. PELVIS: Pelvic Organs: Uterus and ovaries appear within normal size limits with hyperemia of the uterus. There is mild enlargement and prominence of the parametrial veins. There is a small peripherally enhancing cyst in the right ovary measuring up to 1.8 cm likely representing a physiologic cyst. Bladder: Unremarkable. Pelvic Nodes: No enlarged lymph nodes. Miscellaneous: No inguinal hernias are seen. Bones: Visualized osseous structures demonstrate no suspicious focal lesions. IMPRESSION: 1. No evidence of appendicitis. 2. Small peripherally enhancing cyst in the right ovary likely represents a physiologic cyst such as a corpus luteal cyst. 3. Hyperemia of the pelvic vasculature with enlargement and prominence of the parametrial veins. The findings may reflect pelvic congestion syndrome in the appropriate clinical context. Dictated by: Andrea Irizarry M.D. on 09/05/2022 at 21:45 Approved by: Andrea Irizarry M.D. on 09/05/2022 at 22:05
[2022-09-05] MEDS: SODIUM CHLORIDE 0.9% 1,000 ML 1000 ML IV (21:05)
[2022-09-05] MEDS: ONDANSETRON 4 MG/2 ML INJ IV (21:06)
[2022-09-05] MEDS: KETOROLAC 30 MG/ML VIAL 15 MG IV (21:06)
[2022-09-05 22:28] VITALS: BP 132/80; PULSE 87; RESP 16; O2SAT 99
== END 2022-09-05 22:32 | disposition home or self-care (01) ==
PROVIDERS: Emergency Provider Emergency Medicine
DX: N83.201 Unspecified ovarian cyst, right side (principal); R11.2 Nausea with vomiting, unspecified
CPT/HCPCS: 36415; 74177; 80053; 81003; 81025; 83690; 85025; 96361; 96374; 96375; 99284; J1885; J2405; Q9967

== ENCOUNTER 2023-03-21 13:32 | Emergency (ER) | payer MEDICARE, OTHER, SELFPAY ==
[2023-03-21 14:13] VITALS: BP 138/73; PULSE 100; RESP 16; TEMP 36.3; O2SAT 98; BMI 19.7
--- NOTE | 2023-03-21 14:20 | DI.US.S_ITS ---
PROCEDURE: US PELVIC COMPLETE INDICATIONS: HEAVY BLEEDING TECHNIQUE: Real-time scanning was performed of the pelvic organs, with image documentation. Additional endovaginal scanning was necessary due to incomplete visualization of the adnexal and endometrial structures by transabdominal scanning. COMPARISON: [facility], CT, CT ABDOMEN PELVIS W CON, 09/05/2022, 20:53. FINDINGS: Uterus: Uterus is anteverted and normal in size at 7.3 x 3.9 x 4.7 cm. The myometrium is homogeneous. No discrete uterine fibroids. The endometrium measures 8.4 mm combined thickness. There is no endometrial mass or fluid. Ovaries: The right ovary measures 2.4 x 2.4 x 3.2 cm, with a calculated ovarian volume of 9.3 cc. The left ovary measures 3.4 x 2.4 x 3.1 cm, with a calculated ovarian volume of 13.2 cc. The ovaries have a normal sonographic appearance. Less than 12 follicles can be seen in each ovary. No adnexal masses are seen. Other: No pathologic free abdominal or pelvic fluid. IMPRESSION: Unremarkable ultrasound examination of uterus and bilateral ovaries. No finding to explain patient's symptoms. We strive to produce accurate, complete, and clear reports of imaging services. To assist us in improving patient care, this report was composed using standard report templates and voice recognition software. Therefore, it may contain abnormal punctuation, insertions and/or omissions. Occasional wrong-word or sound-alike substitutions may occur. Though we review the report and make efforts to correct it, we do recommend that the report be read carefully in proper context to recognize any text inaccuracies. Dictated by: Justin Benson M.D. on 03/21/2023 at 15:37 Approved by: Justin Benson M.D. on 03/21/2023 at 15:39
[2023-03-21 14:45] LABS: Add Manual Diff / Slide Review NO; Basophils Absolute Auto 0 /uL (0-100); Basophils Percent Auto 0.3 % (0-2); Eosinophils Absolute Auto 0 /uL (0-450); Eosinophils Percent Auto 0.5 % (2-4); Hemoglobin 13.6 g/dL (12.0-16.0); Lymphocytes Absolute Auto 1200 /uL (1100-4500); Lymphocytes Percent Auto 19.9 % (25-40); Mean Corpuscular HGB Conc 34.9 % (30-36); Mean Corpuscular Hemoglobin 28.9 PG (26-34); Mean Corpuscular Volume 82.6 fL (80-100); Monocytes Absolute Auto 500 /uL (0-900); Monocytes Percent Auto 8.3 % (3-14); Neutrophils Absolute Auto 4300 /uL (1500-7000); Platelet Count 215 X10^3/uL (150-400); Red Blood Cell Count 4.72 X10^6/uL (4.0-5.2); Red Cell Distribution Width 13.8 % (11.6-14.8)
[2023-03-21 14:57] LABS: Alanine Aminotransferase 30 IU/L (<35); Albumin 4.5 g/dL (3.5-5.0); Albumin Globulin Ratio 1.6 (1.0-2.8); Alkaline Phosphatase 59 U/L (38-126); Aspartate Aminotransferase 26 IU/L (14-36); BUN Creatinine Ratio 14.8 (6-22); Bilirubin Total 0.7 mg/dL (0.2-1.3); Blood Urea Nitrogen 9 mg/dL (7-17); Calcium 9.2 mg/dL (8.4-10.2); Carbon Dioxide 27 mmol/L (22-32); Chloride 104 mmol/L (98-107); Estimated Glomerular Filt Rate > 60 mL/min (>60); Globulin 2.8 g/dL (1.7-4.1); Glucose 99 mg/dL (70-100); HEMOLYSIS < 15 (0-50); Potassium 3.4 mmol/L (3.4-5.1); Sodium 139 mmol/L (137-145); Total Protein 7.3 g/dL (6.3-8.2)
--- NOTE | 2023-03-21 15:53 | ED.GENADULT ---
HPI - General Adult General Chief complaint: OB/Uterine Contractions Stated complaint: thinks ruptured ovary Time Seen by Provider: 03/21/23 15:53 Source: patient Mode of arrival: Ambulatory History of Present Illness HPI narrative: Patient is a 37-year-old female. She states that she is not on control. Is normally very regular with her menstrual cycles. She has had ovarian cyst in the past. Yesterday started have some abdominal cramping and quite a bit of vaginal bleeding. This would be an abnormal time for her to have a menstrual cycle. She denies any fevers. Has taken some Tylenol and ibuprofen. Denies any urinary symptoms. No change in bowel habits. No nausea or vomiting. Related Data Previous Rx's Medication Instructions Recorded cetirizine 10 mg tablet 20 mg PO BEDTIME #60 tabs 06/25/22 epinephrine 0.3 mg/0.3 mL 0.3 mg (0.3 mL) IM Q5-15M PRN 06/25/22 injection, auto-injector (EpiPen) anaphylaxis #2 ea famotidine 20 mg tablet (Pepcid) 20 mg PO DAILY #14 tabs 06/25/22 hydroxyzine HCl 25 mg tablet 25 mg PO TID PRN itching #20 tabs 06/25/22 Allergies Allergy/AdvReac Type Severity Reaction Status Date / Time cocoa Allergy Verified 03/21/23 14:17 Review of Systems Constitutional Constitutional: Reports system reviewed and no additional complaints, except as documented Cardiovascular Cardiovascular: Reports system reviewed and no additional complaints, except as documented Gastrointestinal Gastrointestinal: Reports system reviewed and no additional complaints, except as documented Genitourinary Genitourinary: Reports system reviewed and no additional complaints, except as documented Integumentary/Breasts Skin/Breast: Reports system reviewed and no additional complaints, except as documented Hematologic/Lymphatic On Anticoagulants: No Patient History Medical History No chronic diseases present Social History Smoking Status: Never smoker Smoking Status: Never smoker alcohol intake frequency: holidays/special occasions only Substance Use Type: does not use Exam Initial Vital Signs Initial Vital Signs: Vital Signs Temperature 97.3 F L 03/21/23 14:13 Pulse Rate 100 H 03/21/23 14:13 Respiratory Rate 16 09/25/23 14:13 Blood Pressure 138/73 03/21/23 14:13 Pulse Oximetry 98 03/21/23 14:13 Oxygen Delivery Method Room Air 03/21/23 14:13 [facility] Head: normal to inspection and normocephalic Resp Effort & Inspection: normal respiratory effort Cardio Rate: regular rate GI Inspection: normal to inspection and non-distended Palpation: soft, No firm, No guarding and tender (Left side of abdomen) Neuro General: patient alert, patient awake and moves all extremities Course Orders Ordered: ED Orders 03/21/23 14:20 US pelvic complete Stat 03/21/23 14:30 CMP [Comprehensive Metabolic Panel] Stat Complete Blood Count AUTO DIFF Stat 03/21/23 15:03 Urine Microscopic Stat Vital Signs Vital signs: Vital Signs - 8 hr 03/21/23 14:13 Temperature 97.3 F L Pulse Rate 100 H Respiratory Rate 16 Blood Pressure 138/73 Pulse Oximetry 98 Oxygen Delivery Method Room Air Medical Decision Making Lab Data Lab results reviewed: Yes I reviewed the patient's lab results. 03/21/23 14:30 03/21/23 14:30 Labs: Lab Results 03/21/23 03/21/23 Range/Units 14:30 14:30 WBC 6.0 (4.5-11.0) X10^3/uL RBC 4.72 (4.0-5.2) X10^6/uL Hgb 13.6 (12.0-16.0) g/dL Hct 39.0 (36-46) % MCV 82.6 (80-100) fL MCH 28.9 (26-34) PG MCHC 34.9 (30-36) % RDW 13.8 (11.6-14.8) % Plt Count 215 (150-400) X10^3/uL Neut % (Auto) 71.0 (50-75) % Lymph % (Auto) 19.9 L (25-40) % [place] % (Auto) 8.3 (3-14) % Eos % (Auto) 0.5 L (2-4) % Baso % (Auto) 0.3 (0-2) % Neut # (Auto) 4300 (1367-2391) /uL Lymph # (Auto) 1200 (7387-9053) /uL [place] # (Auto) 500 (0-900) /uL Eos # (Auto) 0 (0-450) /uL Baso # (Auto) 0 (0-100) /uL Sodium 139 (137-145) mmol/L Potassium 3.4 (3.4-5.1) mmol/L Chloride 104 (98-107) mmol/L Carbon Dioxide 27 (22-32) mmol/L BUN 9 (7-17) mg/dL Creatinine 0.61 (0.52-1.04) mg/dL Estimated GFR > 60 (>60) mL/min BUN/Creatinine Ratio 14.8 (6-22) Glucose 99 (70-100) mg/dL Calcium 9.2 (8.4-10.2) mg/dL Total Bilirubin 0.7 (0.2-1.3) mg/dL AST 26 (14-36) IU/L ALT 30 (<35) IU/L Alkaline Phosphatase 59 (38-126) U/L Total Protein 7.3 (6.3-8.2) g/dL Albumin 4.5 (3.5-5.0) g/dL Globulin 2.8 (1.7-4.1) g/dL Albumin/Globulin Ratio 1.6 (1.0-2.8) Point of Care Testing Test Results Negative Urine Dip Bedside Urine Glucose Negative Bedside Urine Bilirubin - Negative Bedside Urine Ketone - Negative Urine Specific [place] 1.000 Bedside Urine Occult Blood +++ Bedside Urine pH 7.0 Bedside Urine Protein ++ 100 Bedside Urine Urobilinogen - Negative Bedside Urine Nitrite - Negative Bedside Urine Leukocytes ++ 125 Esterase Point of care testing: Point of Care Testing Test Results Negative Urine Dip Bedside Urine Glucose Negative Bedside Urine Bilirubin - Negative Bedside Urine Ketone - Negative Urine Specific [place] 1.000 Bedside Urine Occult Blood +++ Bedside Urine pH 7.0 Bedside Urine Protein ++ 100 Bedside Urine Urobilinogen - Negative Bedside Urine Nitrite - Negative Bedside Urine Leukocytes ++ 125 Esterase Imaging Data US - PRESSURE CONTROLLER: Radiologist's Impression: PROCEDURE:? US PELVIC COMPLETE ? INDICATIONS:? HEAVY BLEEDING ? TECHNIQUE:? Real-time scanning was performed of the pelvic organs, with image documentation.? Additional endovaginal scanning was necessary due to incomplete visualization of the adnexal and endometrial structures by transabdominal scanning.? ? COMPARISON:? [facility], CT, CT ABDOMEN PELVIS W CON, 09/05/2022, 20:53. ? FINDINGS:? ?? Uterus:? Uterus is anteverted and normal in size at 7.3 x 3.9 x 4.7 cm. The myometrium is homogeneous.? No discrete uterine fibroids.? The endometrium measures 8.4 mm combined thickness.? There is no endometrial mass or fluid. ? Ovaries:? The right ovary measures 2.4 x 2.4 x 3.2 cm, with a calculated ovarian volume of 9.3 cc. The left ovary measures 3.4 x 2.4 x 3.1 cm, with a calculated ovarian volume of 13.2 cc. The ovaries have a normal sonographic appearance.? Less than 12 follicles can be seen in each ovary.? No adnexal masses are seen. ? Other:? No pathologic free abdominal or pelvic fluid. ? ? IMPRESSION:? Unremarkable ultrasound examination of uterus and bilateral ovaries.? No finding to explain patient's symptoms. MDM Narrative Medical decision making narrative: Ultrasound shows no signs of an ovarian torsion or ovarian cyst. She potentially had an ovarian cyst that has since ruptured. She is having vaginal bleeding. No recent sexual intercourse. Her H&H is unremarkable. Vital signs unremarkable. I discussed all this with the patient. No indication for emergent interventions today. We did discuss specific return precautions with regard to blood loss. I do feel that we should hold on a CT scan today is I have low suspicion for an acute intra-abdominal surgical issue based on her history and physical exam. Patient expressed understanding and agreement. Discharge Plan Departure Patient Disposition: Home Clinical Impression: Pelvic pain, Vaginal bleeding Instructions: DI for Vaginal Bleeding Activity Restrictions/Additional Instructions: I do recommend that you continue to take any medications as directed. If you start to have worsening bleeding or become short of breath or lightheaded or having chest pain please return to the emergency department. Recommend that you contact your primary doctor and/or OB provider for follow-up. Return to the emergency department for new symptoms. Prescriptions: No Action cetirizine 10 mg tablet 20 mg PO BEDTIME Qty: 60 0RF famotidine [Pepcid] 20 mg tablet 20 mg PO DAILY Qty: 14 0RF hydroxyzine HCl 25 mg tablet 25 mg PO TID PRN (Reason: itching) Qty: 20 0RF epinephrine [EpiPen] 0.3 mg/0.3 mL auto-injector 0.3 mg IM Q5-15M PRN (Reason: anaphylaxis) Qty: 2 3RF Rx Instructions: do not exceed 3 doses per episode, and go to the hospital afterward Referrals: ProviderGina [Primary Care Provider] - Stand Alone Forms: Patient Portal/API
--- NOTE | 2023-03-21 16:00 | PC.NURSE ---
Pt has history of tubes tied, experiencing bleeding and changing pads aproximately once an hour. She states she hasnt usually bled this much. Provider aware
[2023-03-21 16:15] VITALS: BP 129/77; PULSE 99; RESP 14; O2SAT 98
[2023-03-21 16:33] LABS: Bacteria Urine Few (2-10); Culture Indicated Urine Specimen Cultured; RBC Urine >100/HPF (0-5/HPF); Squamous Epithelial Cell Urine 0-1 /HPF (0-5/HPF); WBC Urine 10-30/HPF (0-5/HPF)
== END 2023-03-21 16:15 | disposition home or self-care (01) ==
PROVIDERS: Emergency Provider Emergency Medicine
DX: R10.2 Pelvic and perineal pain (principal); N93.9 Abnormal uterine and vaginal bleeding, unspecified; Z79.899 Other long term (current) drug therapy
CPT/HCPCS: 36415; 76830; 76856; 80053; 81003; 81015; 81025; 85025; 87086; 93976; 99283; 99284

== ENCOUNTER 2023-05-23 15:24 | Emergency (ER) | payer MEDICARE, OTHER, SELFPAY ==
[2023-05-23] VITALS (10 sets, daily range): BP systolic 107–146; BP diastolic 57–87; PULSE 72–123; RESP 10–24; TEMP 37.6; O2SAT 98–100; BMI 19.2
--- NOTE | 2023-05-23 15:56 | DI.CT.S_ITS ---
PROCEDURE: CT HEAD/BRAIN WO CON INDICATIONS: L SIDED HEADACHE, NEW PATTERN TECHNIQUE: Noncontrast 4.5 mm thick angled axial sections acquired from the foramen magnum to the vertex, with coronal and sagittal reformats. For radiation dose reduction, the following was used: automated exposure control, adjustment of mA and/or kV according to patient size. COMPARISON: None. FINDINGS: Image quality: Significant beam hardening artifacts from bilateral cochlear implants are noted. CSF spaces: Basal cisterns are patent. No extra-axial fluid collections. Ventricles are normal in size and shape. Brain: No midline shift. No intracranial masses or hemorrhage. [place]-white matter interface is normal. Skull and face: Bilateral cochlear implants are seen. Calvarium and visualized facial bones are intact, without suspicious lesions. Sinuses: Visualized sinuses and mastoids are clear. IMPRESSION: 1. Slightly limited study due to significant beam hardening artifacts from bilateral cochlear implants. 2. No gross acute intracranial bleed, midline shift or mass effect. Dictated by: Justin Benson M.D. on 05/23/2023 at 16:18 Approved by: Justin Benson M.D. on 05/23/2023 at 16:20
--- NOTE | 2023-05-23 15:58 | ED_ITS ---
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 Patient stated that yesterday she noticed some left-sided ear pain as well as a resulting severe left-sided headache. At the walk-in clinic she reported neck stiffness. She was told she did not have an ear infection, but because she was having neck stiffness she was told to come to the ER to be evaluated for meningitis. She received all of her usual childhood vaccinations. Patient states her primary complaint is the left ear pain and the headache. Has been at bedside states that she is walking normally, speech is normal, patient denies vision changes, fever. Related Data Previous Rx's Medication Instructions Recorded cetirizine 10 mg tablet 20 mg (2 x 10 mg) PO BEDTIME #60 06/25/22 tabs epinephrine 0.3 mg/0.3 mL 0.3 mg (0.3 mL) IM Q5-15M PRN 06/25/22 injection, auto-injector (EpiPen) anaphylaxis #2 ea famotidine 20 mg tablet (Pepcid) 20 mg PO DAILY #14 tabs 06/25/22 hydroxyzine HCl 25 mg tablet 25 mg PO TID PRN itching #20 tabs 06/25/22 ciprofloxacin 0.2 %-hydrocortisone 3 drp EAR-LEFT Q12H 7 days #10 mL 05/23/23 1 % ear drops,suspension (Cipro HC) Allergies Allergy/AdvReac Type Severity Reaction Status Date / Time cocoa Allergy Verified 05/23/23 16:14 Review of Systems Review of Systems Narrative: CONSTITUTIONAL- Denies: fever, chills, fatigue HEENT- Reports: L ear pain Denies: sore throat, nosebleed, vision changes RESPIRATORY- Denies: shortness of breath, cough, wheezing CARDIAC- Denies: chest pain, edema, orthopnea GI- Denies: abdominal pain, nausea, vomiting, constipation, diarrhea - Denies: frequency, dysuria, hematuria, flank pain MSK- Denies: extremity pain, extremity swelling, joint pain, joint swelling SKIN- Denies: rash, itching, burn, swelling NEUROLOGICAL- Reports: headache Denies: numbness, weakness, dizziness PSYCHIATRIC- Denies: anxiety, depression, suicidal ideation, homicidal ideation Patient History Medical History No chronic diseases present Social History Smoking Status: Never smoker Smoking Status: Never smoker alcohol intake frequency: a few times a week Substance Use Type: does not use Exam Initial Vital Signs Initial Vital Signs: Vital Signs Temperature 99.6 F 05/23/23 15:27 Pulse Rate 123 H 05/23/23 15:27 Respiratory Rate 24 05/23/23 15:27 Blood Pressure 146/85 H 05/23/23 15:27 Pulse Oximetry 99 05/23/23 15:27 Oxygen Delivery Method Room Air 05/23/23 15:27 Const: Awake, alert, no acute distress, nontoxic appearing Eyes: PERRL, EOMI, conjunctiva normal Neck: full ROM, no rigidity ENT: Bilateral cochlear implants, edematous L auditory canal, TM normal bilaterally, dentition normal, mucous membranes moist Cardiac: regular rate, regular rhythm RESP: unlabored, clear bilaterally, no wheezing GI: Atraumatic, soft, nontender, nondistended, no rebound, no guarding MSK: Atraumatic, full range of motion, pulses equal Skin: Warm, Dry, intact, no rashes Neuro: AO x3, CN II-XII grossly intact, moves all extremities, speech normal for patient Psych: affect normal, mood normal, not suicidal, not homicidal Course Orders Ordered: Discontinued Medications Diphenhydramine HCl (Diphenhydramine 50 Mg/Ml Vial) 50 mg IV NOW ONE Stop: 05/23/23 15:58 Last Admin: 05/23/23 16:30 Dose: 50 mg Documented By: RB Sodium Chloride (Normal Saline 0.9%) 1,000 mls @ 1,000 mls/hr IV BOLUS ONE Stop: 05/23/23 16:56 Last Infusion: 05/23/23 17:20 Dose: Infused Documented By: Admin: 05/23/23 16:31 Dose: 1,000 mls/hr Documented By: RB Ketorolac Tromethamine (Ketorolac 30 Mg/Ml Vial) 15 mg IV NOW ONE Stop: 05/23/23 15:58 Last Admin: 05/23/23 16:30 Dose: 15 mg Documented By: RB Metoclopramide HCl (Metoclopramide 10 Mg/2 Ml Inj) 10 mg IV NOW ONE Stop: 05/23/23 15:58 Last Admin: 05/23/23 16:30 Dose: 10 mg Documented By: RB Vital Signs Vital signs: Vital Signs - 8 hr 05/23/23 15:27 05/23/23 15:36 05/23/23 15:51 Temperature 99.6 F Pulse Rate 123 H 108 H 113 H Respiratory Rate 24 17 Blood Pressure 146/85 H Pulse Oximetry 99 100 Oxygen Delivery Method Room Air 05/23/23 15:51 05/23/23 16:00 05/23/23 16:00 Temperature Pulse Rate 95 H Respiratory Rate 18 Blood Pressure 127/87 127/69 Pulse Oximetry 98 Oxygen Delivery Method 05/23/23 16:09 05/23/23 16:09 05/23/23 16:15 Temperature Pulse Rate 102 H 92 H Respiratory Rate 11 L 11 L Blood Pressure 117/73 Pulse Oximetry 100 99 Oxygen Delivery Method 05/23/23 16:15 05/23/23 16:30 05/23/23 16:30 Temperature Pulse Rate 93 H Respiratory Rate 10 L Blood Pressure 110/73 109/70 Pulse Oximetry 98 Oxygen Delivery Method 05/23/23 16:45 05/23/23 16:45 05/23/23 17:00 Temperature Pulse Rate 99 H Respiratory Rate 18 Blood Pressure 118/58 L 114/57 L Pulse Oximetry 100 Oxygen Delivery Method 05/23/23 17:00 Temperature Pulse Rate 86 Respiratory Rate 15 Blood Pressure Pulse Oximetry 99 Oxygen Delivery Method MDM - Headache Differential Diagnosis Differential diagnosis: Likely migraine, tension headache and other (otitis externa) MDM Narrative Medical decision making narrative: Well-appearing patient with left-sided headache and ear pain. She was referred to the emergency department for concerns of meningitis, however patient's symptoms are not consistent with meningitis. Symptoms have been ongoing for greater than 1 day, She has no fever, there is absolutely no nuchal rigidity whatsoever on exam, no neuro deficits. While she was told that she did not have an ear infection at walk-in clinic, she does have an edematous external auditory canal and she states that her pain is similar to when she gets ear infections, just more severe this time. CT of the brain is unremarkable. Patient was given a headache cocktail with resolution of her symptoms. Discharged on ear drops for presumed otitis externa. Discharge Plan Departure Patient Disposition: Home Clinical Impression: Headache, Otitis externa Instructions: DI for Otitis Externa, DI for Headache Prescriptions: New Cipro HC 0.2-1 % drops,suspension 3 drp EAR-LEFT Q12H 7 Days Qty: 10 0RF No Action cetirizine 10 mg tablet 20 mg PO BEDTIME Qty: 60 0RF famotidine [Pepcid] 20 mg tablet 20 mg PO DAILY Qty: 14 0RF hydroxyzine HCl 25 mg tablet 25 mg PO TID PRN (Reason: itching) Qty: 20 0RF epinephrine [EpiPen] 0.3 mg/0.3 mL auto-injector 0.3 mg IM Q5-15M PRN (Reason: anaphylaxis) Qty: 2 3RF Rx Instructions: do not exceed 3 doses per episode, and go to the hospital afterward Referrals: ProviderGina [Primary Care Provider] - Stand Alone Forms: Patient Portal/API
[2023-05-23] MEDS: METOCLOPRAMIDE 10 MG/2 ML INJ IV (16:30)
[2023-05-23] MEDS: diphenhydrAMINE 50 MG/ML VIAL IV (16:30)
[2023-05-23] MEDS: KETOROLAC 30 MG/ML VIAL 15 MG IV (16:30)
[2023-05-23] MEDS: SODIUM CHLORIDE 0.9% 1,000 ML 1000 ML IV (16:31)
--- NOTE | 2023-05-25 11:53 | PC.NURSE ---
Pt states that none of the pharmacies in the area have the origional ear drops prescribed. Dr. Breen changed rx to Ciprodex, 4 drops L ear BID for 7 days. RX called in to [facility]. Pt's clinic was notified
== END 2023-05-23 17:32 | disposition home or self-care (01) ==
PROVIDERS: Emergency Provider Emergency Medicine
DX: R51.9 Headache, unspecified (principal); H60.92 Unspecified otitis externa, left ear
CPT/HCPCS: 36415; 70450; 96361; 96374; 96375; 99284; J1200; J1885; J2765

== ENCOUNTER 2023-07-31 18:14 | Emergency (ER) | payer MEDICARE, OTHER, SELFPAY ==
[2023-07-31] VITALS (14 sets, daily range): BP systolic 107–140; BP diastolic 55–77; PULSE 84–111; RESP 14–31; TEMP 36.6; O2SAT 95–100; BMI 20.1
[2023-07-31 20:16] LABS: Alanine Aminotransferase 28 IU/L (<35); Albumin 4.5 g/dL (3.5-5.0); Albumin Globulin Ratio 1.7 (1.0-2.8); Alkaline Phosphatase 62 U/L (38-126); Aspartate Aminotransferase 31 IU/L (14-36); Bilirubin Total 0.7 mg/dL (0.2-1.3); Blood Urea Nitrogen 13 mg/dL (7-17); Calcium 9.3 mg/dL (8.4-10.2); Carbon Dioxide 24 mmol/L (22-32); Chloride 103 mmol/L (98-107); Estimated Glomerular Filt Rate > 60 mL/min (>60); Globulin 2.7 g/dL (1.7-4.1); Glucose 105 mg/dL (70-100); HEMOLYSIS 33 (0-50); Lipase 82 U/L (23-300); Potassium 3.7 mmol/L (3.4-5.1); Sodium 137 mmol/L (137-145); Total Protein 7.2 g/dL (6.3-8.2)
[2023-07-31 20:20] LABS: Add Manual Diff / Slide Review NO; Basophils Absolute Auto 0 /uL (0-100); Basophils Percent Auto 0.1 % (0-2); Eosinophils Absolute Auto 0 /uL (0-450); Eosinophils Percent Auto 0.1 % (2-4); Hematocrit 41.1 % (36-46); Hemoglobin 14.1 g/dL (12.0-16.0); Lymphocytes Absolute Auto 800 /uL (1100-4500); Mean Corpuscular HGB Conc 34.2 % (30-36); Mean Corpuscular Hemoglobin 28.3 PG (26-34); Mean Corpuscular Volume 82.6 fL (80-100); Monocytes Absolute Auto 700 /uL (0-900); Monocytes Percent Auto 6.2 % (3-14); Neutrophils Absolute Auto 9400 /uL (1500-7000); Neutrophils Percent Auto 86.6 % (50-75); Platelet Count 210 X10^3/uL (150-400); Red Blood Cell Count 4.97 X10^6/uL (4.0-5.2); Red Cell Distribution Width 13.7 % (11.6-14.8); White Blood Cell Count 10.9 X10^3/uL (4.5-11.0)
[2023-07-31 20:37] LABS: Ammonia (NH3) < 9 umol/L (9-30)
--- NOTE | 2023-07-31 22:03 | DI.CT.S_ITS ---
PROCEDURE: CT ABDOMEN PELVIS W CON INDICATIONS: abdominal pain generalized TECHNIQUE: After the administration of intravenous contrast, axial sections acquired from the lung bases to the pubic symphysis. Coronal and sagittal reformats were performed. For radiation dose reduction, the following was used: automated exposure control, adjustment of mA and/or kV according to patient size. COMPARISON: [facility], CT, CT ABDOMEN PELVIS W CON, 09/05/2022, 20:53. FINDINGS: Image quality: Diagnostic. Lower Chest: No significant findings. ABDOMEN: Liver: No solid mass. Gallbladder: Normal. Biliary ducts: Nondilated. Pancreas: Normal. Spleen: Elongated spleen measuring 15.3 cm in length. No change compared to prior. Adrenal Glands: No adrenal nodules. Kidneys and Ureters: Symmetric enhancement. No nephrolithiasis or hydronephrosis. No hydroureter. Stomach and Bowel: Stomach and small bowel loops are normal caliber. The appendix was only partially seen but there is no periappendiceal inflammation. Normal colon. Peritoneum: No abnormal intraperitoneal fluid. No free air. Ventral Wall: No significant ventral hernia. Abdominal Nodes: No retroperitoneal or mesenteric adenopathy by size criteria. Vessels: Aorta and inferior vena cava are normal in size. PELVIS: Pelvic Organs: Anteverted uterus. A few follicles on the left ovary. The right ovary is not well seen. Bladder: Urinary bladder is partially decompressed. Despite this, the wall is circumferentially thickened. No stones. Pelvic Nodes: No enlarged lymph nodes. Miscellaneous: No inguinal hernias are seen. Bones: No aggressive osseous abnormality. IMPRESSION: Urinary bladder wall thickening suggestive of cystitis. Correlate with UA. Otherwise no acute process. Dictated by: Drea Rasheed M.D. on 07/31/2023 at 23:32 Approved by: Drea Rasheed M.D. on 07/31/2023 at 23:37
--- NOTE | 2023-07-31 22:06 | ED.ABDPAIN ---
HPI - Abdominal Pain General Chief Complaint: Abdominal Pain Stated Complaint: V/narrow vision/dizziness/abd pain/bloody stool Time Seen by Provider: 07/31/23 20:39 Source: patient Mode of arrival: Ambulatory History of Present Illness HPI narrative: 37-year-old female accompanied by her complaining of lightheadedness nausea diarrhea with some blood in it. Also has crampy lower abdominal pain. She felt sweaty when having bowel movements but has not had fevers at home. Previous abdominal surgeries are limited and bilateral tubal ligation. She has not anticoagulated. Not having any urinary symptoms. Related Data Previous Rx's Medication Instructions Recorded cetirizine 10 mg tablet 20 mg (2 x 10 mg) PO BEDTIME #60 06/25/22 tabs epinephrine 0.3 mg/0.3 mL 0.3 mg (0.3 mL) IM Q5-15M PRN 06/25/22 injection, auto-injector (EpiPen) anaphylaxis #2 ea famotidine 20 mg tablet (Pepcid) 20 mg PO DAILY #14 tabs 06/25/22 hydroxyzine HCl 25 mg tablet 25 mg PO TID PRN itching #20 tabs 06/25/22 ondansetron 4 mg disintegrating 4 mg PO Q6H PRN nausea and 07/31/23 tablet vomiting #14 tabs Allergies Allergy/AdvReac Type Severity Reaction Status Date / Time cocoa Allergy Verified 07/31/23 18:40 Patient History Medical History No chronic diseases present Social History Smoking Status: Never smoker Smoking Status: Never smoker alcohol intake frequency: a few times a week Substance Use Type: does not use Exam Initial Vital Signs Initial Vital Signs: Vital Signs Temperature 98 F 07/31/23 18:34 Pulse Rate 111 H 07/31/23 18:34 Respiratory Rate 18 07/31/23 18:34 Blood Pressure 140/77 07/31/23 18:34 Pulse Oximetry 100 07/31/23 18:34 Oxygen Delivery Method Room Air 07/31/23 18:34 Const General: No acute distress HENMT Head: normocephalic and atraumatic Resp Effort & Inspection: normal respiratory effort Auscultation: clear to auscultation bilaterally Cardio Other: Regular rhythm rate no murmur rub or gallop GI Other: Normal bowel sounds abdomen is flat soft with generalized tenderness more lower than upper voluntary guarding no rebound Skin Other: Warm and dry Neuro General: patient alert and patient oriented x3 Course Orders Ordered: ED Orders 07/31/23 18:58 Complete Blood Count AUTO DIFF Stat Comprehensive Metabolic Panel Stat Lipase Stat 07/31/23 20:20 Ammonia (NH3) Stat 07/31/23 22:03 CT abdomen pelvis w con Stat 07/31/23 22:30 GI Panel (Film Array) Stat Vital Signs Vital signs: Vital Signs - 8 hr 07/31/23 18:34 07/31/23 18:42 07/31/23 18:42 Temperature 98 F Pulse Rate 111 H 104 H Respiratory Rate 18 Blood Pressure 140/77 132/76 Pulse Oximetry 100 100 Oxygen Delivery Method Room Air 07/31/23 19:00 07/31/23 19:01 07/31/23 19:01 Temperature Pulse Rate 103 H 100 H Respiratory Rate 19 15 Blood Pressure 119/60 Pulse Oximetry 100 100 Oxygen Delivery Method 07/31/23 19:30 07/31/23 20:00 07/31/23 20:30 Temperature Pulse Rate 91 H 100 H 95 H Respiratory Rate 17 20 21 Blood Pressure Pulse Oximetry 99 97 Oxygen Delivery Method 07/31/23 21:00 07/31/23 21:18 07/31/23 21:18 Temperature Pulse Rate 91 H 108 H Respiratory Rate 19 15 Blood Pressure 114/56 L Pulse Oximetry 95 98 Oxygen Delivery Method 07/31/23 21:30 07/31/23 21:30 07/31/23 22:00 Temperature Pulse Rate 95 H Respiratory Rate 14 Blood Pressure 107/55 L 120/70 Pulse Oximetry 96 Oxygen Delivery Method 07/31/23 22:00 07/31/23 22:39 07/31/23 23:00 Temperature Pulse Rate 98 H 102 H 94 H Respiratory Rate 26 H 31 H 18 Blood Pressure Pulse Oximetry 96 96 96 Oxygen Delivery Method 07/31/23 23:30 Temperature Pulse Rate 84 Respiratory Rate 26 H Blood Pressure Pulse Oximetry 97 Oxygen Delivery Method MDM - Abdominal Pain Lab Data Lab results narrative: Not , nothing to suggest urinary tract infection on UA, CBC and CMP are reassuring. Lipase is normal 07/31/23 18:58 07/31/23 18:58 Labs: Lab Results 07/31/23 07/31/23 07/31/23 Range/Units 18:58 20:20 22:30 WBC 10.9 (4.5-11.0) X10^3/uL RBC 4.97 (4.0-5.2) X10^6/uL Hgb 14.1 (12.0-16.0) g/dL Hct 41.1 (36-46) % MCV 82.6 (80-100) fL MCH 28.3 (26-34) PG MCHC 34.2 (30-36) % RDW 13.7 (11.6-14.8) % Plt Count 210 (150-400) X10^3/uL Neut % (Auto) 86.6 H (50-75) % Lymph % (Auto) 7.0 L (25-40) % [place] % (Auto) 6.2 (3-14) % Eos % (Auto) 0.1 L (2-4) % Baso % (Auto) 0.1 (0-2) % Neut # (Auto) 9400 H (2675-3641) /uL Lymph # (Auto) 800 L (6159-1253) /uL [place] # (Auto) 700 (0-900) /uL Eos # (Auto) 0 (0-450) /uL Baso # (Auto) 0 (0-100) /uL Sodium 137 (137-145) mmol/L Potassium 3.7 (3.4-5.1) mmol/L Chloride 103 (98-107) mmol/L Carbon Dioxide 24 (22-32) mmol/L BUN 13 (7-17) mg/dL Creatinine 0.52 (0.52-1.04) mg/dL Estimated GFR > 60 (>60) mL/min BUN/Creatinine Ratio 25.0 H (6-22) Glucose 105 H (70-100) mg/dL Calcium 9.3 (8.4-10.2) mg/dL Total Bilirubin 0.7 (0.2-1.3) mg/dL AST 31 (14-36) IU/L ALT 28 (<35) IU/L Alkaline Phosphatase 62 (38-126) U/L Ammonia < 9 L (9-30) umol/L Total Protein 7.2 (6.3-8.2) g/dL Albumin 4.5 (3.5-5.0) g/dL Globulin 2.7 (1.7-4.1) g/dL Albumin/Globulin Ratio 1.7 (1.0-2.8) Lipase 82 (23-300) U/L Stl C. cayetanensis PCR Not detected (Not Detect) Stool Rotavirus (PCR) Not detected (Not Detect) Stool Adenovirus (PCR) Not detected (Not Detect) Stool Astrovirus (PCR) Not detected (Not Detect) Stool Cryptosporidium PCR Not detected (Not Detect) Stl E.coli Shiga Tox PCR Not detected (Not Detect) St Sh/Enteroin Ecoli PCR Not detected (Not Detect) Stl Enterotoxigenic E PCR Not detected (Not Detect) Stool EPEC (PCR) Not detected (Not Detect) Stl E. histolytica PCR Not detected (Not Detect) Stool Giardia Lamblia PCR Not detected (Not Detect) Stool Sapovirus (PCR) Not detected (Not Detect) Stl P. shigelloides PCR Not detected (Not Detect) St Y.enterocolitica PCR Not detected (Not Detect) Stool Vibrio (PCR) Not detected (Not Detect) Stl Vibrio cholerae PCR Not detected (Not Detect) Stl Enteroaggr Ecoli PCR Not detected (Not Detect) Stl Norovirus GI/GII PCR Not detected (Not Detect) Campylobacter (PCR) Not detected (Not Detect) C. difficile Tox (PCR) Not detected (Not Detect) Salmonella (PCR) Not detected (Not Detect) Point of care testing: Urine Dip Bedside Urine Glucose Negative Bedside Urine Bilirubin - Negative Bedside Urine Ketone - Negative Urine Specific [place] 1.01 Bedside Urine Occult Blood - Negative Bedside Urine pH 6.5 Bedside Urine Protein - Negative Bedside Urine Urobilinogen - Negative Bedside Urine Nitrite - Negative Bedside Urine Leukocytes - Negative Esterase Imaging Data CT scan - abdomen/pelvis: My Impression: Independent review of CT abdomen and pelvis, no acute findings Radiologist's Impression: [address] [address] [address] Scan Report Signed Patient: Melani Long MR#: [id number] : 1985 Acct:[id number] Age/Sex: 37 / F Date of Service: 07/31/23 Loc: ED Accession Number: [id number] Procedure: CT abdomen pelvis w con Ordering Provider: Maurice Carbajal MD PROCEDURE: CT ABDOMEN PELVIS W CON INDICATIONS: abdominal pain generalized TECHNIQUE: After the administration of intravenous contrast, axial sections acquired from the lung bases to the pubic symphysis. Coronal and sagittal reformats were performed. For radiation dose reduction, the following was used: automated exposure control, adjustment of mA and/or kV according to patient size. COMPARISON: [facility], CT, CT ABDOMEN PELVIS W [facility], 09/05/2022, 20:53. FINDINGS: Image quality: Diagnostic. Lower Chest: No significant findings. ABDOMEN: Liver: No solid mass. Gallbladder: Normal. Biliary ducts: Nondilated. Pancreas: Normal. Spleen: Elongated spleen measuring 15.3 cm in length. No change compared to prior. Adrenal Glands: No adrenal nodules. Kidneys and Ureters: Symmetric enhancement. No nephrolithiasis or hydronephrosis. No hydroureter. Stomach and Bowel: Stomach and small bowel loops are normal caliber. The appendix was only partially seen but there is no periappendiceal inflammation. Normal colon. Peritoneum: No abnormal intraperitoneal fluid. No free air. Ventral Wall: No significant ventral hernia. Abdominal Nodes: No retroperitoneal or mesenteric adenopathy by size criteria. Vessels: Aorta and inferior vena cava are normal in size. PELVIS: Pelvic Organs: Anteverted uterus. A few follicles on the left ovary. The right ovary is not well seen. Bladder: Urinary bladder is partially decompressed. Despite this, the wall is circumferentially thickened. No stones. Pelvic Nodes: No enlarged lymph nodes. Miscellaneous: No inguinal hernias are seen. Bones: No aggressive osseous abnormality. IMPRESSION: Urinary bladder wall thickening suggestive of cystitis. Correlate with UA. Otherwise no acute process. Dictated by: Drea Rasheed M.D. on 07/31/2023 at 23:32 Approved by: Drea Rasheed M.D. on 07/31/2023 at 23:37 MDM Narrative Medical decision making narrative: 37-year-old female complaining of lightheadedness lower abdominal pain bloody diarrhea. Not having urinary symptoms. Diarrhea was preceded by a couple of days of nausea. No recent antibiotic exposures or travel. No ill contacts. Laboratory workup is reassuring, CT abdominal pelvis does not show any acute surgical intra-abdominal process there is bladder wall thickening but urinalysis does not suggest UTI. Stool was obtained for GI panel, which is negative. Has no history of inflammatory bowel disease, given her reassuring imaging findings I think it is appropriate to give this some time and have her follow up with her primary care provider.. Patient looks well and is tolerating oral intake, I will discharge her home. Provided a prescription for ondansetron. Discharge Plan Departure Patient Disposition: Home Clinical Impression: Diarrhea of presumed infectious origin Abdominal pain Qualifiers: Abdominal location: lower abdomen, unspecified Qualified Code(s): R10.30 - Lower abdominal pain, unspecified Instructions: DI for Abdominal Pain-Adult Activity Restrictions/Additional Instructions: Workup tonight is reassuring. No serious cause of abdominal pain is found, with your diarrhea I think it is likely that this is an intestinal infection. We have sent stool studies which are not going to result tonight. You will be notified tomorrow if there is anything on that that requires specific treatment. In the meantime, get adequate fluids, it is safe to use acetaminophen and/or ibuprofen as needed for pain. I have provided a prescription for ondansetron that you can use as needed for nausea. It may be reasonable to follow a clear liquid diet until your symptoms are improving. If you are having increasing pain uncontrolled vomiting or other acute symptoms recheck in the emergency department. Follow up with your primary care provider in the coming week for re-evaluation also. Prescriptions: New ondansetron 4 mg tablet,disintegrating 4 mg PO Q6H PRN (Reason: nausea and vomiting) Qty: 14 0RF No Action cetirizine 10 mg tablet 20 mg PO BEDTIME Qty: 60 0RF famotidine [Pepcid] 20 mg tablet 20 mg PO DAILY Qty: 14 0RF hydroxyzine HCl 25 mg tablet 25 mg PO TID PRN (Reason: itching) Qty: 20 0RF epinephrine [EpiPen] 0.3 mg/0.3 mL auto-injector 0.3 mg IM Q5-15M PRN (Reason: anaphylaxis) Qty: 2 3RF Rx Instructions: do not exceed 3 doses per episode, and go to the hospital afterward Referrals: ProviderGina [Primary Care Provider] - Stand Alone Forms: Patient Portal/API
[2023-07-31 23:53] LABS: Adenovirus F 40/41 Not Detected (Not Detect); Astrovirus Not Detected (Not Detect); Campylobacter Not Detected (Not Detect); Clostridium difficile toxin AB Not Detected (Not Detect); Cryptosporidium Not Detected (Not Detect); Cyclospora cayetanensis Not Detected (Not Detect); Entamoeba histolytica Not Detected (Not Detect); Enteroaggregative E.coli Not Detected (Not Detect); Enteropathogenic E.coli Not Detected (Not Detect); Enterotoxigenic E.coli It/st Not Detected (Not Detect); Giardia lamblia Not Detected (Not Detect); Norovirus GI/GII Not Detected (Not Detect); Plesiomonsa shigelloides Not Detected (Not Detect); Rotavirus A Not Detected (Not Detect); Salmonella Not Detected (Not Detect); Sapovirus Not Detected (Not Detect); Shiga-like toxin-prod E.coli Not Detected (Not Detect); Shigella/Enteroinvasive E.coli Not Detected (Not Detect); Vibrio Not Detected (Not Detect); Vibrio cholerae Not Detected (Not Detect); Yersinia enterocolitica Not Detected (Not Detect)
== END 2023-08-01 00:04 | disposition home or self-care (01) ==
PROVIDERS: Emergency Provider Emergency Medicine
DX: R10.30 Lower abdominal pain, unspecified (principal); R19.7 Diarrhea, unspecified
CPT/HCPCS: 36415; 74177; 80053; 81003; 82140; 83690; 85025; 87507; 99283; 99284; Q9967